=== PATIENT | male | born 1945 | race Caucasian/White ===

== ENCOUNTER → 2017-04-17 | Outpatient (CLI) | payer OTHER | LOC: BMCIMAGING 12:54 | PROVIDERS: ATTEND Orthopaedic Surgery Hand Surgery | DX: M79.644 Pain in right finger(s) (principal) ==

== ENCOUNTER 2018-02-23 14:16 | Emergency (ER) | payer OTHER ==
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
[2018-02-23 17:25] VITALS: BP 132/88
== END 2018-02-23 17:25 | disposition home or self-care (01) ==
DX: S22.32XA Fracture of one rib, left side, initial encounter for closed fracture (principal); S22.020A Wedge compression fracture of second thoracic vertebra, initial encounter for closed fracture; W01.0XXA Fall on same level from slipping, tripping and stumbling without subsequent striking against object, initial encounter; Y92.828 Other wilderness area as the place of occurrence of the external cause; Y93.01 Activity, walking, marching and hiking

== ENCOUNTER 2018-03-29 12:30 | Emergency (ER) | payer OTHER ==
[2018-03-29] MEDS ORDERED: OXYCODONE/APAP 5/325 TAB PO ONE (14:33)
[2018-03-29] MEDS ORDERED: METHOCARBAMOL 750 MG TAB PO ONE (14:33)
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
[2018-03-29 15:08] VITALS: BP 128/89
== END 2018-03-29 15:08 | disposition home or self-care (01) ==
PROC: 3E023GC Introduction of Other Therapeutic Substance into Muscle, Percutaneous Approach (ICD-10-PCS; principal; 2018-03-29)
DX: M43.6 Torticollis (principal)

== ENCOUNTER → 2018-04-11 | Outpatient (CLI) | payer OTHER | LOC: FIMAGING 12:22 | PROVIDERS: ATTEND Internal Medicine | DX: M81.0 Age-related osteoporosis without current pathological fracture (principal); Z98.1 Arthrodesis status; M85.89 Other specified disorders of bone density and structure, multiple sites ==